=== PATIENT | male | born 1965 | race Caucasian/White ===

== ENCOUNTER 2018-12-12 11:56 | Emergency (ER) | payer MEDICAID ==
[~2018-12-12] VITALS: Ht 185.4 cm; Wt 86.2 kg
[2018-12-12 12:00] VITALS: BP 115/79
--- NOTE | 2018-12-12 12:11 | NUR ---
VSS, WAIT IN LOBBY.
--- NOTE | 2018-12-12 13:56 | NUR ---
report given to Salma HAND
--- NOTE | 2018-12-12 14:00 | NUR ---
CAME IN WITH C/O NAUSEA, LEFT BACK PAIN STARTED YESTERDAY, WITH HISTORY OF KIDNEY STONE
[2018-12-12] MEDS ORDERED: KETOROLAC 30 MG/ML VIAL IVP ONE ×2 (15:55→16:25)
[2018-12-12] MEDS ORDERED: NACL 0.9% 1,000 ML IV ONE ×2 (15:55→16:25)
[2018-12-12] MEDS ORDERED: ONDANSETRON 4 MG/2 ML VIAL IVP ONE ×2 (15:55→16:25)
[2018-12-12 16:33] LABS: HEMATOCRIT 44.9 % (36-52); HEMOGLOBIN 14.9 g/dL (12.0-18.0); MEAN CORPUSCULAR HEMOGLOBIN 30 pg (27-31); MEAN CORPUSCULAR HGB CONC 33 g/dL (33-37); MEAN CORPUSCULAR VOLUME 90.4 fL (80-94); RED BLOOD CELL COUNT(AUTO) 4.96 MIL/uL (4.20-6.10); RED CELL DISTRIBUTION WIDTH 13.1 % (11.6-13.7); WHITE BLOOD COUNT (AUTO) 5.7 K/uL (4.8-10.8)
[2018-12-12 16:34] LABS: BASOPHILS % (AUTO) 0.6 % (0.0-2.0); EOSINOPHILS # (AUTO) 0.2 K/uL (0-0.4); EOSINOPHILS % (AUTO) 2.8 % (0.0-4.0); LYMPHOCYTES % (AUTO) 34.7 % (20.5-51.1); MONOCYTES # (AUTO) 0.5 K/uL (0.8-1.0); MONOCYTES % (AUTO) 8.4 % (1.7-9.3); NEUTROPHILS % (AUTO) 53.5 % (42.2-75.2); PLATELET COUNT (AUTO) 166 K/uL (140-450)
[2018-12-12] MEDS ORDERED: KETOROLAC 30 MG/ML VIAL ONE (16:36)
[2018-12-12] MEDS ORDERED: ONDANSETRON 4 MG/2 ML VIAL ONE (16:37)
[2018-12-12 16:52] LABS: POTASSIUM 4.3 mmol/L (3.5-5.1)
[2018-12-12 16:53] LABS: ALBUMIN 3.8 g/dL (3.4-5.0); ANION GAP 12.8 (8-16); CARBON DIOXIDE 27.5 mmol/L (21-32); CREATININE 1.1 mg/dL (0.7-1.3); TOTAL BILIRUBIN 0.5 mg/dL (0.0-1.0)
--- NOTE | 2018-12-12 17:08 | NUR ---
URINE CUP GIVEN TO PT, HE DOES NOT NEED TO URINATE AT THIS TIME.
[2018-12-12 17:28] LABS: APPEARANCE,URINE CLEAR (CLEAR); BILIRUBIN,URINE NEGATIVE (NEGATIVE); BLOOD, URINE 3+ (NEGATIVE); COLOR,URINE YELLOW (YELLOW); LEUKOCYTE ESTERASE ,URINE NEGATIVE (NEGATIVE); NITRITE, URINE NEGATIVE (NEGATIVE); UGLUCOSE NEGATIVE (NEGATIVE)
[2018-12-12 17:29] VITALS: BP 125/68
[2018-12-12 17:32] LABS: RBC,URINE 20-50 /HPF (0-5); WBC,URINE 0-5 /HPF (0-5)
== END 2018-12-12 17:28 | disposition home or self-care (01) ==
LOC: MED 11:56
DX: R10.9 Unspecified abdominal pain (principal); R11.0 Nausea; F17.200 Nicotine dependence, unspecified, uncomplicated; Z71.6 Tobacco abuse counseling; Z87.442 Personal history of urinary calculi
CPT/HCPCS: 36415; 80053; 81001; 83690; 85025; 96374; 96375; 99283; J1885; J2405; J7030